=== PATIENT | female | born 1995 | race Caucasian/White ===

== ENCOUNTER 2016-06-26 17:07 | Emergency (ER) | payer MEDICAID ==
[~2016-06-26] VITALS: Ht 162.6 cm; Wt 68.0 kg
[2016-06-26] MEDS ORDERED: TETRACAINE 0.5% OPHTH DROPS 4ML OP ONE (20:45)
[2016-06-26] MEDS ORDERED: FLUORESCEIN SODIUM 1MG/STRIP OP ONE (20:45)
[2016-06-26 22:33] VITALS: BP 121/76
== END 2016-06-26 22:35 | disposition home or self-care (01) ==
LOC: ER 19:20
DX: H57.8 Other specified disorders of eye and adnexa (principal); F17.210 Nicotine dependence, cigarettes, uncomplicated
CPT/HCPCS: 99283